=== PATIENT | male | born 1995 | race Caucasian/White ===

== ENCOUNTER → 2017-02-22 | Outpatient (CLI) | payer OTHER ==
--- NOTE | 2017-02-23 07:15 | DIAGNOSTIC IMAGING REPORT ---
ABDOMINAL WALL ULTRASOUND CLINICAL HISTORY: Periumbilical pain and lump. Possible hernia COMPARISON STUDY: No previous studies for comparison. FINDINGS: Ultrasonographic evaluation of the periumbilical region was performed. There is no ultrasonographic evidence of a hernia. No pathologic masses are visualized. IMPRESSION: No hernia identified. Electronically signed by: Ac Alvarado M.D. 02/22/2017 8:32 AM Dictated Date/Time: 02/22/2017 8:31 AM
== END | disposition home or self-care (01) ==
LOC: C.ULTRBC 07:45
PROVIDERS: ATTEND Family Medicine
DX: R10.33 Periumbilical pain (principal)

== ENCOUNTER → 2017-11-29 | Outpatient (CLI) | payer OTHER ==
[2017-11-29 13:47] LABS: BLOOD UREA NITROGEN 16 mg/dl (7-18); CALCIUM 9.5 mg/dl (8.5-10.1); CARBON DIOXIDE 28 mmol/L (21-32); CREATININE 1.01 mg/dl (0.60-1.40); GLUCOSE 83 mg/dl (70-99); POTASSIUM 4.4 mmol/L (3.5-5.1); SODIUM 137 mmol/L (136-145)
== END | disposition home or self-care (01) ==
LOC: C.LAB1850 12:13
PROVIDERS: ATTEND Physician Assistant Medical
DX: R00.2 Palpitations (principal)